=== PATIENT | female | born 1980 | race Caucasian/White ===

== ENCOUNTER 2019-04-02 05:18 | Emergency (ER) | payer BC, OTHER ==
[~2019-04-02] VITALS: Ht 157.5 cm; Wt 50.8 kg
[2019-04-02 06:03] VITALS: BP 120/80
--- NOTE | 2019-04-02 06:03 | NUR ---
Patient discharged to home in stable conditon. Written and verbal after care instructions given. Patient verbalizes understanding of instructions. Patient ambulated with stable gait.
== END 2019-04-02 06:05 | disposition home or self-care (01) ==
LOC: ER 05:21
DX: M54.5 Low back pain (principal); W10.9XXA Fall (on) (from) unspecified stairs and steps, initial encounter; Y93.89 Activity, other specified; Y92.89 Other specified places as the place of occurrence of the external cause; Y99.8 Other external cause status
CPT/HCPCS: A4663